=== PATIENT | female | born 1990 | race Caucasian/White ===

== ENCOUNTER 2022-07-23 07:35 | Inpatient (IN) | payer OTHER, SELFPAY ==
[2022-07-23] VITALS (56 sets, daily range): BP systolic 97–131; BP diastolic 52–97; PULSE 71–114; RESP 13–18; TEMP 36.2–37.7; O2SAT 90–100; BMI 32.6
[2022-07-23] MEDS: Lactated Ringers 1,000 ML 999 ML IV (07:40)
[2022-07-23 07:56] LABS: Absolute Lymphocyte Count 1.09 X10^3/uL (0.83-4.51); Absolute Neutrophil Count 23.5 X10^3/uL (2.0-7.7); Basophil# 0.05 X10^3/uL; Basophil% 0.2 % (0-1); Hemoglobin 12.5 g/dL (12.0-15.0); Lymphocyte # 1.09 X10^3/ul (0.83-4.51); Lymphocyte % 4.1 % (19-41); Mean Corp Hgb Conc 34.7 g/dL (32-36); Mean Corpuscular Hgb 33.2 pg (27.0-32.0); Mean Corpuscular Volume 95.5 fL (81-99); Mean Platelet Vol. 11.4 fl (6.2-12.0); Monocyte# 1.38 X10^3/uL; Monocyte% 5.3 % (0-10); NRBC Flagged by Analyzer 0 % (0-5); Neutrophil # 23.53 X10^3/uL (2.7-7.7); Neutrophil % 89.6 % (47-70); POSITIVE DIFFERENTIAL YES; Platelet Count 271 K/mm3 (150-450); RBC Distribution Width CV 13.9 % (11.6-14.6); RBC Distribution Width SD 48.7 fl (35.1-43.9); Red Blood Count 3.77 M/mm3 (4.2-5.4); White Blood Count 26.3 K/mm3 (4.4-11.0)
[2022-07-23 08:02] LABS: Differential Indicated SCAN CRITERIA MET
--- NOTE | 2022-07-23 08:07 | PCM.HP.BLA ---
History and Physical Date of Admission: 07/23/22 HPI: 31-year-old G1, P0 at 41/4w, EFE 07/12/2022 by IVF, admitted in labor. 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 Had rupture of membranes around 6 AM light meconium. Based on light meconium decision to come to the hospital was made. No vaginal bleeding. Denies headache or vision changes, chest pain or shortness of breath, nausea or vomiting, diarrhea or constipation, fevers or chills. Denies complications in this . complicated by: Postdates, meconium fluid, IVF , hypothyroidism. Resolved hydronephrosis. Hypothyroidism. DOCUMENT ADVISOR history: G1 current, IVF Medical history: 1. Hypothyroidism Surgical history: 1. [place] teeth extraction 2. Egg retrieval, embryo transfer 3. Hysteroscopy Medications: 1. Synthroid 2. vitamin Allergies: No known drug allergies Social: Denies tobacco, alcohol, drug use Family history: Negative for blood clots or bleeding disorders Review system: Negative otherwise stated above Physical exam: Blood pressure 121/97, heart rate 87, pulse ox 100% on room air, temp 99.9 ?F General: No acute distress, uncomfortable with contraction resting in between HEENT: Normocephalic/atraumatic, PERRLA Cardiorespiratory: No increased effort Abdomen: Soft, nontender, gravid Extremities: No edema Musculoskeletal: Strength 5 out of 5 throughout extremities Neurologic: Cranial nerves II through XII grossly intact, no focal deficits Cervical exam: 9.5 cm per RN on admission panel pending, declined GBS heart rate:145/mod dede/+accel/ intermittent late decelerations [place]: q2-3 Assessment/plan:31-year-old G1, P0 at 41/4w, EFE 07/12/2022 by IVF, admitted in labor. complicated by: Postdates, meconium fluid, IVF , hypothyroidism. Resolved hydronephrosis. Hypothyroidism. ?Admit for labor. Declines pain management. ? panel drawn ?Did not have group beta strep swab. Discussed that your beta strep is a normal bacteria that lives in the vaginal and rectal area of about 30% of women. Discussed that BV will be exposed to this bacteria present if it is present. Grew beta strep can cause severe illness in neonates including pneumonia, meningitis, sepsis. Discussed this could potentially lead to severe complications, ICU admission, . Would recommend treatment at this time. Patient understands risks and declines swab and treatment. Understands that she will likely be monitored for extended period of time postdelivery, in order to monitor BP. ?Discussed potential need for internal monitors (FSE/IUPC) in order to continuously trace baby. With intermittent late decelerations. Now continuously tracing, no need at this time. Patient understands that this would be used in limited capacity and to determine decleration type for baby safety. Understands and declines if needed. -Court Bailiff Or Sheriff aware of meconium fluid and declining GBS swab and treatment. -Continue expectant management.
[2022-07-23] MEDS: Ondansetron 4 MG/2 ML Vial IV ×3 (08:31→23:05)
[2022-07-23] MEDS: Mag Hydrox/Al Hydrox/Simeth 30 ML UDC PO (09:52)
[2022-07-23 09:56] LABS: Rubella IgG Reactive (Nonreactive); Syphilis Antibodies Non-reactive
[2022-07-23 10:15] LABS: HIV - WCH Non-Reactive (Nonreactive); Hepatitis B Surface Antigen Non-Reactive (Nonreactive); Hepatitis C Antibody Non-Reactive (Nonreactive)
[2022-07-23] MEDS: Lactated Ringers 1,000 ML 200 ML IV (10:16)
--- NOTE | 2022-07-23 12:50 | PCM.PN.OB ---
Subjective Subjective Patient seen and examined. Objective Data Objective Data Vital Signs: Vital Signs Temp Pulse BP Pulse Ox 98.2 F 78 130/66 H 100 07/23/22 11:29 07/23/22 11:33 07/23/22 11:33 07/23/22 10:24 Weight: 81 kg Body Mass Index (BMI) 32.6 Intake & Output: Intake and Output for Last 24 Hours 07/21/22 07/22/22 07/23/22 23:59 23:59 23:59 Intake Total 1000.0 / 1000.0 Balance 1000.0 / 1000.0 Lab / Micro Data Attestation: I reviewed the patient's lab results. Result Diagrams: 07/23/22 07:40 Labs: Laboratory Results - last 24 hr 07/23/22 07:40: WBC 26.3 H, RBC 3.77 L, Hgb 12.5, Hct 36.0 L, MCV 95.5, MCH 33.2 H, MCHC 34.7, RDW Std Deviation 48.7 H, RDW Coeff of Kate 13.9, Plt Count 271, MPV 11.4, Immature Gran % (Auto) 0.800, Neut % (Auto) 89.6 H, Lymph % (Auto) 4.1 L, [place] % (Auto) 5.3, Eos % (Auto) 0.0, Baso % (Auto) 0.2, Absolute Neuts (auto) 23.5 H, Absolute Lymphs (auto) 1.09, Nucleated RBC % 0 07/23/22 07:40: Blood Type O POSITIVE, Antibody Screen NEGATIVE 07/23/22 07:50: Syphilis Total Ab Non-reactive, Rubella IgG Antibody Reactive 07/23/22 07:50: Hep Bs Antigen Non-Reactive, Hepatitis C Antibody Non-Reactive, HIV 1&2 Antibody Non-Reactive Physical Exam Const alert, oriented x3 and no apparent distress Resp normal respiratory effort GI soft to palpation, non-tender and non-distended Inspection: gravid Narrative: /+1, caput Extremity no pedal edema Neuro no focal motor deficits and no sensory deficits noted NST FHR Rate Baby A Baseline: 135 Variability:: Moderate Accelerations:: 15 x 15 Decelerations:: Prolonged (x1 4 minutes to neal of 90s resolved spontaneously) FHR Category:: Category II Assessment & Plan (1) Active labor: PLAN: Discussed options of management at this point, patient has been pushing for 4 hours. Patient is becoming exhausted. Discussed options of continued maternal efforts, vacuum-assisted vaginal delivery, section. Risks and benefits of vacuum discussed. Risk include but are not limited to: Risk of scalp abrasion, maternal lacerations, cephalohematoma, subgaleal hemorrhage. Discussed risks and benefits of section. Risk include but are not limited to: Risk of bleeding to the point transfusion, infection, injury to surrounding tissue including bowel/bladder, VTE, ICU admission. Patient aware. Patient elects for primary section. Proceed in a nonemergent fashion. 2 g Ancef and 500 mg azithromycin to be given preoperatively.
[2022-07-23] MEDS: Sodium Citrate/Citric Acid 30 ML UDC PO (12:53)
[2022-07-23] MEDS: Acetaminophen 500 MG Tablet PO (12:53)
[2022-07-23] MEDS: Cefazolin 2 GM in 0.9% Normal Saline 100 ML IV (13:09)
[2022-07-23] MEDS: Oxytocin 15 Units/NS 250ml 15 UNITS/250 ML IV.SOLN 83 UNITS IV (13:25)
--- NOTE | 2022-07-23 14:08 | OP.PCM_ITS ---
Maternal Data Information Final EFE: 07/12/22 Details Operative Information Date of Procedure: 07/23/22 Pre-Operative Diagnosis: Elective section Post-Operative Diagnosis: Elective section Indications Narrative: 31-year-old G1, P0 at 41/4 weeks presenting to labor and delivery with meconium fluid, I had planned home delivery. Patient pushed for 4 hours. At that time elected for primary section. All risk, benefits, alternatives discussed with the patient. Risk include but are not limited to: Risk of bleeding to the point transfusion, infection, injury to surrounding tissue including bowel/bladder potentially requiring prolonged Eng catheter use, VTE, ICU admission. Patient aware and consented. Classification: COLBY Procedure Type: low transverse Type of Anesthesia: Spinal Estimated Blood Loss: 700 cc Fluids Replaced: 1500 cc Findings Description of Procedure: Patient taken to the operating room spinal anesthesia placed. Patient placed in the supine position on the left lateral tilt. Prepped and draped in the usual sterile fashion. Pfannenstiel skin incision made with scalpel and carried down through subcutaneous tissue. Fascia nicked on either side of midline and extended bilaterally using Edmondson scissors. Fascia grasped superiorly with Celestina clamps and underlying rectus muscles dissected off bluntly and sharply at midline using Edmondson scissors. Celestina clamps moved to inferior fascial edge which was tented up and underlying rectus muscles dissected off bluntly and sharply at midline using Edmondson scissors. Rectus muscles were superiorly and peritoneum entered bluntly. Bladder blade placed. Vesicouterine peritoneum identified. Low transverse uterine incision made with scalpel and extended bluntly. Hand placed into the uterine cavity noting low station head. Head noted to be in the occiput posterior position. Assistance from hand from below was initiated. In order to allow for additional room to deliver head, transverse uterine incision was extended vertically, to make a T- incision using bandage scissors. With the assistance of hand from below head w as delivered followed by body. No nuchal cord. Baby delivered, cord clamped and baby handed to waiting nursery staff. Manual extraction of placenta. Uterus exteriorized and cleared of all clots. Small left hysterotomy extension was noted, closed and hemostatic with [id number] stitches. T portion of the incision closed with running stitch followed by a second baseball stitch. Transverse uterine incision closed with a running stitch followed by a second imbricating stitch. Hemostatic with additional [id number] stitch at the right edge. Uterine serosa noted to be using at the right side of the uterus, hemostatic with [id number] stitch. Closure is noted to be hemostatic. Uterus replaced into the abdominal cavity, hemostasis again noted. Danna placed along the hysterotomy. Fascia closed with a running stitch. Subcutaneous tissue reapproximated with suture. Skin closed with a running subcuticular stitch. At the end of the procedure all needle, lap, sponge counts were correct. Patient to receive 24 hours of antibiotics for assistance from below. T-incision discussed with both patient and . Patient and aware that she will require repeat section for next delivery. Infant A Gender: Male (1 minute): 8 (5 minute): 9
[2022-07-23] MEDS: Ketorolac 30 MG/ML Syringe IV (17:51)
[2022-07-23] MEDS: Lactated Ringers 1,000 ML 100 ML IV (18:01)
[2022-07-23] MEDS: Acetaminophen 500 MG Tablet 1000 MG PO (20:29)
[2022-07-23] MEDS: Cefazolin 1 GM/50 ML BAG IV (20:58)
[2022-07-24] VITALS (7 sets, daily range): BP systolic 99–127; BP diastolic 52–79; PULSE 88–95; RESP 12–18; TEMP 36.2–36.8; O2SAT 94–99
[2022-07-24] MEDS: LACTATED RINGERS 500 ML 999 ML IV (00:56)
[2022-07-24] MEDS: Acetaminophen 500 MG Tablet 1000 MG PO ×4 (02:36→21:20)
[2022-07-24] MEDS: Lactated Ringers 1,000 ML 100 ML IV (04:09)
[2022-07-24] MEDS: Cefazolin 1 GM/50 ML BAG IV (05:11)
[2022-07-24] MEDS: Enoxaparin 40 MG/0.4 ML Syringe SC (05:15)
[2022-07-24] MEDS: Ketorolac 30 MG/ML Syringe IV ×2 (05:23→10:52)
[2022-07-24] MEDS: Levothyroxine 88 MCG Tablet PO (05:27)
[2022-07-24 05:43] LABS: Hematocrit 25.7 % (37-47); Hemoglobin 8.6 g/dL (12.0-15.0); Mean Corp Hgb Conc 33.5 g/dL (32-36); Mean Corpuscular Hgb 32.1 pg (27.0-32.0); Mean Corpuscular Volume 95.9 fL (81-99); Mean Platelet Vol. 11.5 fl (6.2-12.0); Platelet Count 213 K/mm3 (150-450); RBC Distribution Width CV 13.9 % (11.6-14.6); RBC Distribution Width SD 48.2 fl (35.1-43.9); Red Blood Count 2.68 M/mm3 (4.2-5.4); White Blood Count 16.6 K/mm3 (4.4-11.0)
--- NOTE | 2022-07-24 07:26 | PN.OBGYN_ITS ---
Subjective Subjective No overnight complaints. Pain well controlled. Objective Data Objective Data Vital Signs: Vital Signs Temp Pulse Resp BP Pulse Ox O2 Del Method 97.8 F 95 16 99/52 L 98 Room Air 07/24/22 03:44 07/24/22 03:44 07/24/22 03:44 07/24/22 03:44 07/24/22 03:44 07/24/22 03:44 Oxygen Delivery Method Room Air Weight: 178 lb 9.191 oz Body Mass Index (BMI) 32.6 Intake & Output: Intake and Output for Last 24 Hours 07/22/22 07/23/22 07/24/22 23:59 23:59 23:59 Intake Total 2506.0 / 2506.0 2550 / 2550 Output Total 1200 / 1200 365 / 365 Balance 1306.0 / 1306.0 2185 / 2185 Lab / Micro Data Result Diagrams: 07/24/22 05:30 Labs: Laboratory Results - last 24 hr 07/23/22 07:40: WBC 26.3 H, RBC 3.77 L, Hgb 12.5, Hct 36.0 L, MCV 95.5, MCH 33.2 H, MCHC 34.7, RDW Std Deviation 48.7 H, RDW Coeff of Kate 13.9, Plt Count 271, MPV 11.4, Immature Gran % (Auto) 0.800, Neut % (Auto) 89.6 H, Lymph % (Auto) 4.1 L, [place] % (Auto) 5.3, Eos % (Auto) 0.0, Baso % (Auto) 0.2, Absolute Neuts (auto) 23.5 H, Absolute Lymphs (auto) 1.09, Nucleated RBC % 0 07/23/22 07:40: Blood Type O POSITIVE, Antibody Screen NEGATIVE 07/23/22 07:50: Syphilis Total Ab Non-reactive, Rubella IgG Antibody Reactive 07/23/22 07:50: Hep Bs Antigen Non-Reactive, Hepatitis C Antibody Non-Reactive, HIV 1&2 Antibody Non-Reactive 07/24/22 05:30: WBC 16.6 H, RBC 2.68 L, Hgb 8.6 L, Hct 25.7 L, MCV 95.9, MCH 32.1 H, MCHC 33.5, RDW Std Deviation 48.2 H, RDW Coeff of Kate 13.9, Plt Count 213, MPV 11.5 Physical Exam Const alert, oriented x3, no apparent distress, average body habitus, healthy appearing and well nourished HEENT normocephalic and moist oral mucous membranes Eyes PERRL Neck full ROM Resp normal respiratory effort, no retractions and no use of accessory muscles GI GI Narrative: Soft, nontender, bandage clean dry and intact Extremity normal to inspection, full ROM and no clubbing, cyanosis or edema Neuro moves all extremities and no focal motor deficits Psych mental status grossly normal, affect normal, speech normal and activity/motor behavior normal Assessment & Plan (1) delivery delivered: PLAN: Postop day 1 status post primary section T incision for failure to progress. Breast-feeding, to see today. No overnight complaints, mild incisional discomfort. Likely home tomorrow
[2022-07-24] MEDS: Senna/Docusate Sodium 1 Tablet PO (10:52)
[2022-07-24] MEDS: 0.9% Saline Lock 10 ML Syringe IV (10:53)
[2022-07-24] MEDS: Ibuprofen 600 MG Tablet PO ×2 (17:33→23:37)
[2022-07-25] MEDS: Acetaminophen 500 MG Tablet 1000 MG PO ×4 (03:11→20:53)
[2022-07-25 03:14] VITALS: BP 107/67; PULSE 73; RESP 16; TEMP 36.3; O2SAT 100
[2022-07-25] MEDS: Levothyroxine 88 MCG Tablet PO (05:44)
[2022-07-25] MEDS: Enoxaparin 40 MG/0.4 ML Syringe SC (05:44)
[2022-07-25] MEDS: Ibuprofen 600 MG Tablet PO ×4 (05:44→23:13)
--- NOTE | 2022-07-25 08:39 | PN.OBGYN_ITS ---
Subjective Subjective No overnight complaints. Pain well controlled Objective Data Objective Data Vital Signs: Vital Signs Temp Pulse Resp BP Pulse Ox O2 Del Method 97.3 F L 73 16 107/67 100 Room Air 07/25/22 03:14 07/25/22 03:14 07/25/22 03:14 07/25/22 03:14 07/25/22 03:14 07/25/22 03:14 Oxygen Delivery Method Room Air Weight: 178 lb 9.191 oz Body Mass Index (BMI) 32.6 Intake & Output: Intake and Output for Last 24 Hours 07/23/22 07/24/22 07/25/22 23:59 23:59 23:59 Intake Total 2506.0 / 2506.0 3210 / 3210 Output Total 1200 / 1200 1665 / 1665 Balance 1306.0 / 1306.0 1545 / 1545 Lab / Micro Data Result Diagrams: 07/24/22 05:30 Physical Exam Const alert, oriented x3, no apparent distress, average body habitus, healthy appearing and well nourished HEENT normocephalic and moist oral mucous membranes Eyes PERRL Neck full ROM Resp normal respiratory effort, no retractions and no use of accessory muscles Extremity normal to inspection and full ROM Neuro moves all extremities and no focal motor deficits Psych mental status grossly normal, affect normal, speech normal and activity/motor be havior normal Assessment & Plan (1) delivery delivered: PLAN: Postop day 2 status post primary section for failure to progress T-incision. Pain well controlled. Breast-feeding. Baby in special care for evaluation of possible eye infection. Likely home tomorrow
[2022-07-25] MEDS: Senna/Docusate Sodium 1 Tablet PO (10:59)
[2022-07-25 11:00] VITALS: BP 124/72; PULSE 72; RESP 16; TEMP 36.2
[2022-07-25 13:55] VITALS: BP 123/69; PULSE 74; RESP 16; TEMP 36.6
[2022-07-25 19:36] VITALS: BP 130/76; PULSE 72; RESP 18; TEMP 36.4; O2SAT 97
[2022-07-26 01:23] LABS: Chlamydia Trachomatis by PCR Negative (Negative); Neisserai gonorrhoeae by PCR Negative (Negative); Probe Check PASS; Sample Adequacy Control PASS; Specimen Processing Control PASS
[2022-07-26 01:52] VITALS: BP 126/71; PULSE 73; RESP 16; TEMP 36.1; O2SAT 98
--- NOTE | 2022-07-26 01:53 | NURSING ---
Pt refused fundal check and vaginal bleeding check due to holding sleeping baby. RN expressed importance. Will reattempt later.
[2022-07-26] MEDS: Acetaminophen 500 MG Tablet 1000 MG PO ×3 (03:19→15:14)
[2022-07-26] MEDS: Enoxaparin 40 MG/0.4 ML Syringe SC (05:13)
[2022-07-26] MEDS: Ibuprofen 600 MG Tablet PO ×2 (05:13→11:39)
[2022-07-26] MEDS: Levothyroxine 88 MCG Tablet PO (05:14)
--- NOTE | 2022-07-26 07:23 | DS.PCM_ITS ---
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 Continue labor continue to complete dilation and pushed for 4 hours elected for primary section for failure to progress. section complicated by T-incision. Routine postop recovery. Baby went to special care for eye infection. Patient discharged home on 07/26/2022 Meaningful Use Info Meaningful Use Diagnoses (Choose all that apply): None applicable Discharge Plan Admission Admit Date/Time: 07/23/22 07:35 Primary Reason for Your Visit: Labor Attending Provider: Esthela Lr Primary Care Provider: Care PhysicianKelly Primary Instructions Additional Instructions / Restrictions: Regular diet. No lifting over 25 pounds for 2 to 3 weeks. Okay to shower. No tub baths for 2 weeks. No intercourse for 4 to 6 weeks. Call if fevers, chills, chest pain, shortness of breath. Follow-up 2 weeks postoperatively Discharge Orders/Prescriptions Prescriptions: New oxycodone 5 mg Tablet 5 mg PO Q6H PRN PRN (Reason: Pain Score 7-10) 4 Days Qty: 16 0RF Continued levothyroxine 88 mcg tablet 88 mcg PO DAILY Label Comments: TAKE 1 TABLET BY MOUTH IN THE MORNING ON AN EMPTY STOMACH DIRECTED [id number] 1 mg Tablet 1 tab PO DAILY Referrals / Follow Up: Care Physician,No Primary [Primary Care Provider] - Disposition Disposition (needs filled in before D/C Order can be placed): Home, Self Care
--- NOTE | 2022-07-26 07:24 | PCM.PN.OB ---
Subjective Subjective No overnight complaints. Pain well controlled Objective Data Objective Data Vital Signs: Vital Signs Temp Pulse Resp BP Pulse Ox O2 Del Method 97 F L 73 16 126/71 H 98 Room Air 07/26/22 01:52 07/26/22 01:52 07/26/22 01:52 07/26/22 01:52 07/26/22 01:52 07/26/22 01:52 Oxygen Delivery Method Room Air Weight: 178 lb 9.191 oz Body Mass Index (BMI) 32.6 Intake & Output: Intake and Output for Last 24 Hours 07/24/22 07/25/22 07/26/22 23:59 23:59 23:59 Intake Total 3210 / 3210 Output Total 1665 / 1665 Balance 1545 / 1545 Lab / Micro Data Result Diagrams: 07/24/22 05:30 Labs: Laboratory Results - last 24 hr 07/25/22 23:42: Chlam trachomat DNA PCR Negative, N.gonorrhoeae DNA (PCR) Negative Physical Exam Const alert, oriented x3, no apparent distress, average body habitus, healthy appearing and well nourished HEENT normocephalic and moist oral mucous membranes Eyes PERRL Neck full ROM Resp normal respiratory effort, no retractions and no use of accessory muscles Extremity normal to inspection, full ROM and no clubbing, cyanosis or edema Neuro moves all extremities and no focal motor deficits Psych mental status grossly normal, affect normal, speech normal and activity/motor behavior normal Assessment & Plan (1) delivery delivered: PLAN: Postop day 3 status post primary section for failure to progress, T-incision. Breast-feeding. Pain well controlled. Baby in special care for eye infection. Mom and baby being discharged home today
[2022-07-26 09:40] VITALS: BP 122/69; PULSE 80; RESP 16; TEMP 36.2
[2022-07-26] MEDS: Senna/Docusate Sodium 1 Tablet PO (11:39)
[2022-07-26 14:00] VITALS: BP 119/68; PULSE 73; RESP 16; TEMP 36.6
--- NOTE | 2022-07-26 14:45 | CASEMGMT ---
Addendum entered and electronically signed by Laya Benítez 07/26/22 16:10: Link attached to this note - The [place] Depression Screen attached to this note was documented in error. Brief assessment information below, is correct however. -yaquelin Original Note: Social Work Brief Assessment Labor and Delivery Unit Patient Address: [address] [place] [address] , [place] [id number] Phone number: [phone] Date of Referral/Notification: 07/25/2022 Time of Referral: [id number] Referred By: Social work identification Date of Intervention: 07/26/2022 Time of Intervention: 113 Reason for Referral: in special care nursery Informant: Medical record and mother of baby (MOB) Nicole Kwon History: MOB is a 31-year-old female, to the father of baby (FOB) Aniket Kwon (age 30). MOB reports has been 5 years to the FOB but together for 9. Denies any type of domestic violence or intimate partner violence issues in this marriage. Baby aleah Samano delivered on 07/23/2022 via primary at 41 weeks gestation. Conception occurred via IVF and did initially see Dr. Alanis Rojas in [place] for establishment with a physician. MOB was followed however by late ice cream maker Flora Edwards with a planned home delivery. MOB reports due to like the labor and maternal exhaustion decision was made for hospital . MOB reports to be in biweekly counseling at [facility], currently seeing Carolyn Aldana for therapy. History of depression/anxiety. Reports intends to continue on this in the timeframe. Reports some suicidal ideation as a teenager, but nothing as an adult and no history of attempts. Reports to feel counseling is helpful. MOB denies any type of substance use issues for self or FOB. Urine drug screen on was negative at . MOB and FOB both have a bachelor's degree and no issues with reading, writing or learning comprehension. 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 Assessment: Met with MOB in room, introducing to self and social work role. Educated MOB that this account underwriter is the social media sr strategy manager for [facility], and for continuity of care of families admitted into the special care nursery also provide social work services to the special care nursery. MOB pleasant and receptive to social work visit, talkative, good eye contact and bright affect. MOB expressed appreciation for social work visit and touching base. MOB discussed experience, that is accepting of the fact that MOB had a hospital delivery plus a , and acknowledges that though the was not as planned it was necessary for the health of both MOB and baby. MOB spontaneously voiced a belief that healthcare workers might have viewed MOB as difficult patient during hospital stay, due to MOB having done a lot of research on own and having beliefs about interventions she was and was not okay with for her baby. Emotional support, reflective listening, and supportive encouragement provided to MOB this date. MOB reports to have adequate housing, transportation and supplies for the baby including a safe sleep space. Denies any issues with meeting basic needs. Reports to have good support from the FOB who will be taking off 8 weeks from work timeframe. Additional support from ice cream maker and a good friend. There is family around as well. MOB expresses understanding for risk of depression and anxiety, and reports intent to remain in counseling, as well as plans to encapsulate placenta as has read findings this intervention is helpful regarding mitigation of PPD/PPA. Provided MOB with informational packet on mood and anxiety disorders, and resource information for additional support. Written information also provided on safe sleeping, shaken baby prevention, help me grow, and additional counseling resources and [facility] where the family lives. MOB denies any concerns with home-going and there have been no voiced concerns by staff regarding parent-child interactions or bonding. Plan: MOB and will discharge from their respective units when both are medically ready. Resource information for [place] and on mood and anxiety disorders given. MOB is already established with counseling and plans to maintain this in the timeframe. No further needs requested or indicated. -MAGDI Rodríguez MSW *This note was generated with [email or web address] software. It may contain incorrect words, spelling, and punctuation that were not noted in review of the chart prior to signing*
== END 2022-07-26 15:30 | disposition home or self-care (01) | DRG 787 ==
LOC: WPOUT 07:42 → WP 07:42
PROVIDERS: Pediatrics; Admitting Provider Student in an Organized Health Care Education/Training Program; Visit Provider Student in an Organized Health Care Education/Training Program
DX: O48.0 Post-term pregnancy (principal); N99.842 Postprocedural seroma of a genitourinary system organ or structure following a genitourinary system procedure; E03.9 Hypothyroidism, unspecified; O99.893 Other specified diseases and conditions complicating puerperium; O77.0 Labor and delivery complicated by meconium in amniotic fluid; O76 Abnormality in fetal heart rate and rhythm complicating labor and delivery; O99.284 Endocrine, nutritional and metabolic diseases complicating childbirth; Z3A.41 41 weeks gestation of pregnancy; Z37.0 Single live birth
CPT/HCPCS: 59025; 59050; 85025; 85027; 86703; 86762; 86780; 86803; 86850; 86900; 86901; 87340; 87491; 87591; 99218; J7120; A4216; G0378; J2405